=== PATIENT | male | born 1965 | race Caucasian/White ===

== ENCOUNTER 2020-12-23 14:42 | Emergency (ER) | payer BC ==
[~2020-12-23] VITALS: Ht 180.3 cm; Wt 92.3 kg
[2020-12-23 16:05] VITALS: BP 148/64; PULSE 66; TEMP 97.7
== END 2020-12-23 16:05 | disposition home or self-care (01) ==
LOC: COL.ER 14:42
DX: S61.042A Puncture wound with foreign body of left thumb without damage to nail, initial encounter (principal); Z23 Encounter for immunization; W45.8XXA Other foreign body or object entering through skin, initial encounter